=== PATIENT | female | born 1965 | race African-American/Black ===

== ENCOUNTER 2020-01-03 12:37 | Emergency (ER) | payer BC, SELFPAY ==
[~2020-01-03] VITALS: Ht 157.5 cm; Wt 70.3 kg
[2020-01-03 14:01] VITALS: Ht 157.5 cm; Wt 70.3 kg
[2020-01-03 15:19] VITALS: BP 135/110
== END 2020-01-03 15:19 | disposition home or self-care (01) ==
LOC: ED 12:37
DX: R43.8 Other disturbances of smell and taste (principal); R06.02 Shortness of breath; R05 Cough; N18.9 Chronic kidney disease, unspecified; M32.9 Systemic lupus erythematosus, unspecified; Z88.2 Allergy status to sulfonamides; Z88.1 Allergy status to other antibiotic agents; Z20.828 Contact with and (suspected) exposure to other viral communicable diseases
CPT/HCPCS: Q0092; U0003-CS